=== PATIENT | female | born 2000 | race Caucasian/White ===

== ENCOUNTER 2023-11-18 15:17 | Emergency (ER) | payer OTHER ==
[~2023-11-18] VITALS: Ht 157.5 cm; Wt 88.9 kg
[2023-11-18] MEDS ORDERED: ETHINYL ESTRADIOL VAGINAL (15:55)
[2023-11-18] MEDS ORDERED: [UNRECOGNIZED DRUG - OTHER] VAGINAL (15:55)
[2023-11-18] MEDS ORDERED: ondansetron HCL 4 MG/2 ML VIAL IV ONE (16:00)
[2023-11-18] MEDS ORDERED: SODIUM CHLORIDE 0.9% 1,000 ML IV PRN (16:00)
[2023-11-18] MEDS ORDERED: HYDROCODONE/ACETA 5/325 TAB PO ONE (16:00)
[2023-11-18 16:23] LABS: BASOPHILS 0.8 % (0-2); EOSINOPHILS 2.9 % (0-6); HEMATOCRIT 37.8 % (35.0-50.0); HEMOGLOBIN 12.4 g/dL (12.0-18.0); LYMPHOCYTES 26.2 % (24-44); MCH 28.7 (27-36); MCHC 32.9 g/dl (30-36); MCV 87.2 fl (81-99); MONOCYTES 7.6 % (0-12); NEUTROPHILS 62.5 % (39-80); PLATELET COUNT 263 K/uL (140-440); RBC 4.33 M/ul (4.3-5.7); RDW 13.8 (10.5-15.0)
[2023-11-18] MEDS ORDERED: ONDANSETRON ODT8 MG PO (16:44)
[2023-11-18 16:49] LABS: ALBUMIN 3.7 g/dL (3.4-5.0); ALBUMIN/GLOBULIN RATIO 1.12 (1.1-2.4); ANION GAP 12.8 (7-21); BILIRUBIN, TOTAL 0.4 ng/dL (0.2-1.0); BUN/CREATININE RATIO 18.05 (6.0-28.6); CALCIUM 8.8 mg/dL (8.5-10.1); CREATININE, SERUM 0.72 mg/dL (0.55-1.02); POTASSIUM 3.8 mmol/L (3.5-5.1)
[2023-11-18 17:10] VITALS: BP 113/73
== END 2023-11-18 17:10 | disposition home or self-care (01) ==
LOC: ED 15:17
PROVIDERS: Emergency Medicine
DX: S00.83XA Contusion of other part of head, initial encounter (principal); V89.2XXA Person injured in unspecified motor-vehicle accident, traffic, initial encounter
CPT/HCPCS: 36415; 70450; 72125; 80053; 84703; 85025; 96374; 99284-25; J2405; J7030